=== PATIENT | female | born 1945 | race Caucasian/White ===

== ENCOUNTER → 2017-04-03 | Outpatient (CLI) | payer MEDICARE, BC ==
--- NOTE | 2017-04-04 09:44 | MM ---
Reason for exam: screening (asymptomatic). Last mammogram was performed 1 year and 6 months ago. History: Patient is postmenopausal. Took estrogen for 3 years beginning at age 48. Physical Findings: A clinical breast exam by your physician is recommended on an annual basis and results should be correlated with mammographic findings. MG Screening Mammo w CAD Bilateral CC and MLO view(s) were taken. Prior study comparison: September 26, 2015, bilateral MG 3d screening mammo w/cad. September 15, 2014, bilateral MG screening mammo w CAD. The breast tissue is heterogeneously dense. This may lower the sensitivity of mammography. There is no discrete abnormality. No significant changes when compared with prior studies. ASSESSMENT: Negative, BI-RAD 1 RECOMMENDATION: Routine screening mammogram of both breasts in 1 year.
== END | disposition home or self-care (01) ==
LOC: RADMAMWWP 12:22
PROVIDERS: ATTEND Obstetrics & Gynecology
DX: Z12.31 Encounter for screening mammogram for malignant neoplasm of breast (principal)

== ENCOUNTER → 2018-06-25 | Outpatient (CLI) | payer MEDICARE ==
--- NOTE | 2018-06-29 09:56 | MM ---
Reason for exam: screening (asymptomatic). Last mammogram was performed 1 year and 3 months ago. History: Patient is postmenopausal. Took estrogen for 3 years beginning at age 48. Physical Findings: A clinical breast exam by your physician is recommended on an annual basis and results should be correlated with mammographic findings. MG 3D Screening Mammo W/Cad Bilateral CC and MLO view(s) were taken. Prior study comparison: April 03, 2017, bilateral MG screening mammo w CAD. September 26, 2015, bilateral MG 3d screening mammo w/cad. The breast tissue is heterogeneously dense. This may lower the sensitivity of mammography. Stable benign calcifications. There is no discrete abnormality. No significant changes when compared with prior studies. ASSESSMENT: Benign, BI-RAD 2 RECOMMENDATION: Routine screening mammogram of both breasts in 1 year.
== END | disposition home or self-care (01) ==
LOC: RADMAMWWP 12:46
PROVIDERS: ATTEND Internal Medicine
DX: Z12.31 Encounter for screening mammogram for malignant neoplasm of breast (principal)
CPT/HCPCS: 77063; 77067

== ENCOUNTER → 2019-06-28 | Outpatient (CLI) | payer MEDICARE ==
--- NOTE | 2019-06-29 11:50 | MM ---
Reason for exam: screening (asymptomatic). Last mammogram was performed 1 year ago. History: Patient is postmenopausal. Took hormonal contraceptives for 10 years. Took estrogen for 3 years beginning at age 48. MG 3D Screening Mammo W/Cad Bilateral CC and MLO view(s) were taken. Prior study comparison: June 25, 2018, bilateral MG 3d screening mammo w/cad. April 03, 2017, bilateral MG screening mammo w CAD. The breast tissue is heterogeneously dense. This may lower the sensitivity of mammography. There are benign-appearing bilateral breast calcifications. No suspicious abnormality. No significant new findings when compared to prior studies. ASSESSMENT: Benign, BI-RAD 2 RECOMMENDATION: Routine screening mammogram of both breasts in 1 year.
== END | disposition home or self-care (01) ==
LOC: RADMAMWWP 09:45
PROVIDERS: ATTEND Internal Medicine
DX: Z12.31 Encounter for screening mammogram for malignant neoplasm of breast (principal)
CPT/HCPCS: 77063; 77067

== ENCOUNTER 2020-08-27 11:09 | Emergency (ER) | payer MEDICARE ==
[2020-08-27 11:21] VITALS: RESP 18
[2020-08-27] MEDS ORDERED: ONDANSETRON 4 MG/2 ML VIAL IVP STA (11:45)
[2020-08-27] MEDS ORDERED: SODIUM CHLORIDE 0.9% 500 ML 500 ML IV STA (11:45)
[2020-08-27 12:00] LABS: Basophils # (A) 0.1 k/uL (0-0.2); Basophils % (A) 1 %; Eosinophils # (A) 0.1 k/uL (0-0.7); Eosinophils % (A) 1 %; HCT 44.3 % (34.0-46.0); HGB 14.9 gm/dL (11.4-16.0); Lymphocytes # (A) 1.4 k/uL (1.0-4.8); Lymphocytes % (A) 18 %; MCH 30.7 pg (25.0-35.0); MCHC 33.6 g/dL (31.0-37.0); MCV 91.3 fL (80.0-100.0); Mean Platelet Volume 7.2; Monocytes # (A) 0.4 k/uL (0-1.0); Monocytes % (A) 5 %; Neutrophils # (A) 5.4 k/uL (1.3-7.7); Neutrophils % (A) 73 %; Platelet Count 240 k/uL (150-450); RBC 4.85 m/uL (3.80-5.40); RDW 12.7 % (11.5-15.5); WBC 7.4 k/uL (3.8-10.6)
[2020-08-27 12:11] LABS: ALT 19 U/L (4-34); AST 29 U/L (14-36); African American GFR (CKD) >90 (>60 ml/min/1.73 sqM); Albumin 4.2 g/dL (3.5-5.0); Alkaline Phosphatase 80 U/L (38-126); Amylase 46 U/L (30-110); Anion Gap 7 mmol/L; Blood Urea Nitrogen 12 mg/dL (7-17); Calcium 9.5 mg/dL (8.4-10.2); Carbon Dioxide 28 mmol/L (22-30); Chloride 102 mmol/L (98-107); Glucose 119 mg/dL (74-99); Non-African American GFR(CKD) 86 (>60 ml/min/1.73 sqM); Potassium 3.9 mmol/L (3.5-5.1); Sodium 137 mmol/L (137-145); Total Bilirubin 1.3 mg/dL (0.2-1.3); Total Protein 7.5 g/dL (6.3-8.2)
[2020-08-27 12:12] LABS: Appearance,Urine Clear (Clear); Bilirubin,Urine Negative (Negative); Blood,Urine Small (Negative); Color,Urine Yellow; Glucose,Urine (UA) Negative (Negative); Hyaline Casts,Urine 3 /lpf (0-2); Ketones,Urine 1+ (Negative); Leukocyte Esterase,Urine Moderate (Negative); Mucus,Urine Occasional /hpf; Nitrite,Urine Negative (Negative); PH, Urine 6.5 (5.0-8.0); Protein,Urine Negative (Negative); RBC,Urine 7 /hpf (0-5); Specific Gravity,Urine 1.015 (1.001-1.035); Squamous Epithelial Cell,Urine 1 /hpf (0-4); Urobilinogen,Urine <2.0 mg/dL (<2.0); WBC,Urine 5 /hpf (0-5)
--- NOTE | 2020-08-27 12:39 | ED ---
Abdominal Pain HPI - General Chief Complaint: Abdominal Pain Stated Complaint: abd pain Time Seen by Provider: 08/27/20 11:27 Source: patient Mode of arrival: ambulatory Limitations: no limitations - History of Present Illness Initial Comments: Patient is a 75-year-old female presenting to the emergency Department with complaints of lower abdominal pain that has been increasing over the past 3 days. Patient states she does have a history diverticulitis but that was about 7-8 years ago, and she is concerned that is what it is. She states she's also been under a lot of stress over the past few days secondary to her having dementia. Patient denies any recent fever, chills. She states she has had occasional nausea, no vomiting. She did have an episode of diarrhea 3 days ago but has been having regular movement since. She denies any dysuria. She denies any chest pain or shortness of breath. She does admit to history of cholecystectomy, hysterectomy, no other abdominal surgeries. She has no further complaints at this time. Upon arrival to the ER, her vital signs are stable. - Related Data Home Medications Medication Instructions Recorded Confirmed carvediloL [Carvedilol] 3.125 mg PO BID 09/02/15 09/03/15 lisinopriL 40 mg PO DAILY 09/02/15 09/03/15 Previous Rx's Medication Instructions Recorded Omeprazole [PriLOSEC] 40 mg PO AC-BRKFST #30 cap 09/04/15 Amoxicillin 500 mg PO Q12HR #10 cap 09/07/15 HYDROcodone/APAP 5-325MG [[place] 1 each PO Q4HR PRN #20 tab 09/07/15 5-325] Allergies Allergy/AdvReac Type Severity Reaction Status Date / Time No Known Allergies Allergy Verified 09/03/15 11:22 Review of Systems ROS Statement: Those systems with pertinent positive or pertinent negative responses have been documented in the HPI. ROS Other: All systems not noted in ROS Statement are negative. Past Medical History Past Medical History: GERD/Reflux, Hypertension Additional Past Medical History / Comment(s): diverticulitis, spinal stenosis History of Any Multi-Drug Resistant Organisms: None Reported Past Surgical History: Back Surgery, Cholecystectomy, Hysterectomy, Orthopedic Surgery, Tonsillectomy Additional Past Surgical History / Comment(s): 12-02-14 laminectomy with 2 rods and 3 pins. Has had colonoscopy performed within the last 2-3 years. cataracts Past Anesthesia/Blood Transfusion Reactions: No Reported Reaction Past Psychological History: No Psychological Hx Reported Smoking Status: Never smoker Past Alcohol Use History: None Reported Past Drug Use History: None Reported - Past Family History Father Family Medical History: Cancer Mother Family Medical History: Hypertension, Thyroid Disorder General Exam - General Exam Comments Initial Comments: GENERAL: Patient is well-developed and well-nourished. Patient is nontoxic and in no acute distress. HEAD: Atraumatic, normocephalic. EYES: Pupils equal round and reactive to light, extraocular movements intact, sclera anicteric, conjunctiva are normal. Eyelids were unremarkable. ENT: TMs normal, nares patent, oropharynx clear without exudates. Moist mucous membranes. NECK: Normal range of motion, supple without lymphadenopathy or JVD. LUNGS: Unlabored respirations. Breath sounds clear to auscultation bilaterally and equal. No wheezes rales or rhonchi. HEART: Regular rate and rhythm without murmurs, rubs or gallops. ABDOMEN: Tender in the lower abdomen, suprapubic region. Soft, normoactive bowel sounds. No guarding, no rebound. No masses appreciated. : Deferred MUSCULOSKELETAL: Normal extremities with adequate strength and normal range of motion, no pitting or edema. No clubbing or cyanosis. NEUROLOGICAL: Patient is alert and oriented x 3. Motor and sensory are also intact. Cranial nerves II through XII grossly intact. Symmetrical smile. Normal speech, normal gait. PSYCH: Normal mood, normal affect. SKIN: Warm, Dry, normal turgor, no rashes or lesions noted. Limitations: no limitations Course Vital Signs 08/27/20 08/27/20 11:17 13:05 Temperature 97.9 F 98 F Pulse Rate 83 72 Respiratory 18 18 Rate Blood Pressure 145/86 113/59 O2 Sat by Pulse 98 97 Oximetry Medical Decision Making - Medical Decision Making Patient is a 75-year-old female here for lower abdominal pain increasing 3 day s. Occasional nausea, one day of diarrhea, normal bowel movement since. Her vital signs are stable, afebrile. She is tender in the lower abdomen bilaterally. Labs show a normal white count, normal lactic acid, normal lipase. Urine shows no evidence of infection. CT of the abdomen shows no evidence of acute diverticulitis, no other abnormalities are seen. Patient received some fluids, Zofran. She is resting comfortably in the room. I discussed with patient her findings, this is most likely stress related, indigestion. I will send patient home with a starter pack and Zofran to use as needed for further nausea. Patient is in agreement with this plan of care. She will follow up with her PCP if needed. Return parameters were discussed with the patient she verbalized understanding. Case discussed with Dr. Roy. - Lab Data Result diagrams: 08/27/20 11:50 08/27/20 11:50 Lab Results 08/27/20 08/27/20 08/27/20 Range/Units 11:50 11:50 11:50 WBC 7.4 (3.8-10.6) k/uL RBC 4.85 (3.80-5.40) m/uL Hgb 14.9 (11.4-16.0) gm/dL Hct 44.3 (34.0-46.0) % MCV 91.3 (80.0-100.0) fL MCH 30.7 (25.0-35.0) pg MCHC 33.6 (31.0-37.0) g/dL RDW 12.7 (11.5-15.5) % Plt Count 240 (150-450) k/uL Neutrophils % 73 % Lymphocytes % 18 % Monocytes % 5 % Eosinophils % 1 % Basophils % 1 % Neutrophils # 5.4 (1.3-7.7) k/uL Lymphocytes # 1.4 (1.0-4.8) k/uL Monocytes # 0.4 (0-1.0) k/uL Eosinophils # 0.1 (0-0.7) k/uL Basophils # 0.1 (0-0.2) k/uL Sodium 137 (137-145) mmol/L Potassium 3.9 (3.5-5.1) mmol/L Chloride 102 (98-107) mmol/L Carbon Dioxide 28 (22-30) mmol/L Anion Gap 7 mmol/L BUN 12 (7-17) mg/dL Creatinine 0.65 (0.52-1.04) mg/dL Est GFR (CKD-EPI)AfAm >90 (>60 ml/min/1.73 sqM) Est GFR (CKD-EPI)NonAf 86 (>60 ml/min/1.73 sqM) Glucose 119 H (74-99) mg/dL Plasma Lactic Acid Sergio (0.7-2.0) mmol/L Calcium 9.5 (8.4-10.2) mg/dL Total Bilirubin 1.3 (0.2-1.3) mg/dL AST 29 (14-36) U/L ALT 19 (4-34) U/L Alkaline Phosphatase 80 (38-126) U/L Total Protein 7.5 (6.3-8.2) g/dL Albumin 4.2 (3.5-5.0) g/dL Amylase 46 (30-110) U/L Lipase 107 (23-300) U/L Urine Color Yellow Urine Appearance Clear (Clear) Urine pH 6.5 (5.0-8.0) Ur Specific [place] 1.015 (1.001-1.035) Urine Protein Negative (Negative) Urine Glucose (UA) Negative (Negative) Urine Ketones 1+ H (Negative) Urine Blood Small H (Negative) Urine Nitrite Negative (Negative) Urine Bilirubin Negative (Negative) Urine Urobilinogen <2.0 (<2.0) mg/dL Ur Leukocyte Esterase Moderate H (Negative) Urine RBC 7 H (0-5) /hpf Urine WBC 5 (0-5) /hpf Ur Squamous Epith Cells 1 (0-4) /hpf Hyaline Casts 3 H (0-2) /lpf Urine Mucus Occasional H (None) /hpf 10/25/20 Range/Units 11:50 WBC (3.8-10.6) k/uL RBC (3.80-5.40) m/uL Hgb (11.4-16.0) gm/dL Hct (34.0-46.0) % MCV (80.0-100.0) fL MCH (25.0-35.0) pg MCHC (31.0-37.0) g/dL RDW (11.5-15.5) % Plt Count (150-450) k/uL Neutrophils % % Lymphocytes % % Monocytes % % Eosinophils % % Basophils % % Neutrophils # (1.3-7.7) k/uL Lymphocytes # (1.0-4.8) k/uL Monocytes # (0-1.0) k/uL Eosinophils # (0-0.7) k/uL Basophils # (0-0.2) k/uL Sodium (137-145) mmol/L Potassium (3.5-5.1) mmol/L Chloride (98-107) mmol/L Carbon Dioxide (22-30) mmol/L Anion Gap mmol/L BUN (7-17) mg/dL Creatinine (0.52-1.04) mg/dL Est GFR (CKD-EPI)AfAm (>60 ml/min/1.73 sqM) Est GFR (CKD-EPI)NonAf (>60 ml/min/1.73 sqM) Glucose (74-99) mg/dL Plasma Lactic Acid Sergio 1.0 (0.7-2.0) mmol/L Calcium (8.4-10.2) mg/dL Total Bilirubin (0.2-1.3) mg/dL AST (14-36) U/L ALT (4-34) U/L Alkaline Phosphatase (38-126) U/L Total Protein (6.3-8.2) g/dL Albumin (3.5-5.0) g/dL Amylase (30-110) U/L Lipase (23-300) U/L Urine Color Urine Appearance (Clear) Urine pH (5.0-8.0) Ur Specific [place] (1.001-1.035) Urine Protein (Negative) Urine Glucose (UA) (Negative) Urine Ketones (Negative) Urine Blood (Negative) Urine Nitrite (Negative) Urine Bilirubin (Negative) Urine Urobilinogen (<2.0) mg/dL Ur Leukocyte Esterase (Negative) Urine RBC (0-5) /hpf Urine WBC (0-5) /hpf Ur Squamous Epith Cells (0-4) /hpf Hyaline Casts (0-2) /lpf Urine Mucus (None) /hpf Disposition Clinical Impression: Abdominal pain Disposition: HOME SELF-CARE Condition: Stable Instructions (If sedation given, give patient instructions): Abdominal Pain (ED) Additional Instructions: Please return to the Emergency Department if symptoms worsen or any other concerns. Lab work and computed tomography scan today was normal. May use Zofran for additional nausea. Recommend increase fluid intake. Follow-up with PCP. Is patient prescribed a controlled substance at d/c from ED?: No Referrals: Fely Forte MD [Primary Care Provider] - 1-2 days
--- NOTE | 2020-08-27 12:44 | CT ---
EXAMINATION TYPE: CT abdomen pelvis w con DATE OF EXAM: 08/27/2020 HISTORY: lower abd pain, diarrhea CT DLP: 1237.8mGycm Automated Exposure Control for Dose Reduction was Utilized. CONTRAST: CT scan of the abdomen and pelvis is performed without oral but with IV Contrast, patient injected wi th 100 mL of Isovue 300. COMPARISON: CT abdomen May 03, 2014 CT abdomen and pelvis April 18, 2013 FINDINGS: LUNG BASES: Calcification at level of mitral valve now present. LIVER/GB: Cholecystectomy clips now seen. Visualized liver low dense relative to spleen consistent wi th diffuse fatty infiltration. PANCREAS: No significant abnormality is seen. SPLEEN: No significant abnormality is seen. ADRENALS: No significant abnormality is seen. KIDNEYS: Symmetrical cortical medullary uptake and excretion without hydronephrosis seen bilaterally. BOWEL: Suboptimal evaluation ball without enteric contrast. No suspicious small or large bowel dilata tion is seen. Arat-ox-nxnzzudb diffuse gastric fold prominence could reflect products of underlying g astritis, correlate clinically. Prominent Diverticula throughout the colon without convincing CT evid ence for acute diverticulitis. UTERUS/ADNEXA: Uterus surgically absent or markedly atrophic. LYMPH NODES: No greater than 1cm abdominal or pelvic lymph nodes are appreciated. OSSEOUS STRUCTURES: Posterior interpedicular rods and screws transfix the L3-L5 levels. Grade 1 anter olisthesis L4 on L5. Moderate disc space narrowing L4-L5 level. Posterior laminectomy defects with sp inous process resection L4 level OTHER: No significant additional abnormality is seen. IMPRESSION: Prominent colonic diverticulosis without convincing CT evidence for acute diverticulitis. No bowel obstruction. No suspicious acute findings seen to account for patient's symptoms of lower a bdominal pain and diarrhea.
[2020-08-27] MEDS ORDERED: ONDANSETRON 4 MG ODT STARTER PACK 2 TAB BTL PO STA (12:57)
[2020-08-27 13:06] VITALS: BP 113/59; PULSE 72; TEMP 98
== END 2020-08-27 13:05 | disposition home or self-care (01) ==
LOC: EC 11:09
DX: R10.30 Lower abdominal pain, unspecified (principal); R10.814 Left lower quadrant abdominal tenderness; R10.813 Right lower quadrant abdominal tenderness; I10 Essential (primary) hypertension; Z79.899 Other long term (current) drug therapy; Z90.49 Acquired absence of other specified parts of digestive tract; Z90.710 Acquired absence of both cervix and uterus
CPT/HCPCS: 36415; 80053; 82150; 83605; 83690; 85025; 81001; 74177; 99284; 96374; J2405; S0119; Q9967

== ENCOUNTER → 2020-09-20 | Outpatient (CLI) | payer MEDICARE ==
--- NOTE | 2020-09-22 09:11 | MM ---
Reason for exam: screening (asymptomatic). Last mammogram was performed 1 year and 3 months ago. History: Patient is postmenopausal. Took hormonal contraceptives for 10 years. Took estrogen for 3 years beginning at age 48. Physical Findings: A clinical breast exam by your physician is recommended on an annual basis and results should be correlated with mammographic findings. MG 3D Screening Mammo W/Cad Bilateral CC and MLO view(s) were taken. Prior study comparison: June 28, 2019, bilateral MG 3d screening mammo w/cad. June 25, 2018, bilateral MG 3d screening mammo w/cad. There are scattered fibroglandular densities. No significant changes when compared with prior studies. ASSESSMENT: Benign, BI-RAD 2 RECOMMENDATION: Routine screening mammogram of both breasts in 1 year.
== END | disposition home or self-care (01) ==
LOC: RADMAMWWP 10:58
PROVIDERS: ATTEND Internal Medicine
DX: Z12.31 Encounter for screening mammogram for malignant neoplasm of breast (principal)
CPT/HCPCS: 77063; 77067

== ENCOUNTER → 2021-04-06 | Outpatient (CLI) | payer MEDICARE | END | disposition home or self-care (01) | LOC: LABPAT 08:37 | PROVIDERS: ATTEND Surgery | DX: Z01.812 Encounter for preprocedural laboratory examination (principal); Z20.822 Contact with and (suspected) exposure to COVID-19 | CPT/HCPCS: U0003; C9803; U0005 ==

== ENCOUNTER 2021-04-13 06:50 | Day surgery (SDC) | payer MEDICARE ==
[2021-04-11 10:01] VITALS: BMI 31.8
[~2021-04-13 06:50] MED LIST: LACTATED RINGERS 1,000 ML IV SCH
[2021-04-13 07:19] VITALS: TEMP 98.6
[2021-04-13] MEDS ORDERED: GLYCOPYRROLATE 0.2 MG/ML 2 ML VIAL ONE (07:28)
[2021-04-13] MEDS ORDERED: PROPOFOL 10 MG/ML 20 ML VIAL IV ONE (07:28)
[2021-04-13] MEDS ORDERED: LIDOCAINE 1% INJ 10MG/ML (20 ML MDV) ONE (07:28)
--- NOTE | 2021-04-13 07:32 | P.HPIHPCON ---
History of Present Illness H&P Date: 04/13/21 76-year-old female presents today for screening colonoscopy. Her last colonoscopy was in 2012. She states that time, 1 polyp was found. She denies any recent changes in bowel function. She denies any blood in her stool. Consent for Procedure: I have explained the operation/procedure to the patient, including the risks, benefits, side effects, alternative therapies (including not receiving the proposed treatment or service), the likelihood of the patient achieving his/her goals, and potential recuperation problems for the procedure/sedation/analgesia, as well as any blood products, if indicated. I also explained to the patient the risks, benefits and side effects of the alternatives, as well as the risks related to not receiving the proposed procedure, care, treatment, or services. - Review of Systems All systems: negative Past Medical History Past Medical History: GERD/Reflux, Hypertension Additional Past Medical History / Comment(s): diverticulitis, spinal stenosis History of Any Multi-Drug Resistant Organisms: None Reported Past Surgical History: Back Surgery, Cholecystectomy, Hysterectomy, Orthopedic Surgery, Tonsillectomy Additional Past Surgical History / Comment(s): 12-02-14 laminectomy with 2 rods and 3 pins. Has had colonoscopy performed within the last 2-3 years. cataracts- BILAT, KNEE SX Past Anesthesia/Blood Transfusion Reactions: No Reported Reaction Smoking Status: Never smoker - Past Family History Father Family Medical History: Cancer Mother Family Medical History: Hypertension, Thyroid Disorder Medications and Allergies Home Medications Medication Instructions Recorded Confirmed Type carvediloL [Carvedilol] 3.125 mg PO BID 09/02/15 04/11/21 History lisinopriL 40 mg PO DAILY 09/02/15 04/11/21 History Omeprazole 20 mg PO DAILY 04/11/21 04/11/21 History Vit D3 125 mcg PO DAILY 04/11/21 History hydroCHLOROthiazide [Hydrodiuril] 25 mg PO DAILY 04/11/21 04/11/21 History Allergies Allergy/AdvReac Type Severity Reaction Status Date / Time No Known Allergies Allergy Verified 04/13/21 07:11 Surgical - Exam Osteopathic Statement: *. No significant issues noted on an osteopathic structural exam other than those noted in the History and Physical/Consult. Vital Signs Temp Pulse Resp BP Pulse Ox 98.6 F 78 18 134/67 97 04/13/21 07:18 04/13/21 07:18 04/13/21 07:18 04/13/21 07:18 04/13/21 07:18 - General no distress - Respiratory normal respiratory effort - Abdomen Abdomen: soft, non tender Assessment and Plan Plan: 68-year-old female presents for elective screening colonoscopy. Risks, benefits and alternatives were provided to the patient. She did provide consent prior to attending the endoscopy suite. Further recommendations to be made after procedure.
[2021-04-13] MEDS ORDERED: ONDANSETRON 4 MG/2 ML VIAL ONE (07:55)
[2021-04-13] MEDS ORDERED: ONDANSETRON 4 MG/2 ML VIAL IVP ONE (07:55)
--- NOTE | 2021-04-13 07:55 | P.PCN ---
Date of Procedure: 04/13/21 Preoperative Diagnosis: Screening for colon cancer Postoperative Diagnosis: Diverticulosis Internal hemorrhoids Procedure(s) Performed: Colonoscopy Anesthesia: MAC Surgeon: Vic Branch Pathology: none sent Condition: stable Disposition: same day Indications for Procedure: 76-year-old female presents for elective screening colonoscopy. She has a history of polyps. Denies any blood in her stool. Operative Findings: Pandiverticulosis Internal hemorrhoids Description of Procedure: The patient was brought into the endoscopy suite and placed in left lateral decubitus position and adequate sedation was achieved using conscious sedation. A digital rectal exam was performed and internal hemorrhoids were palpated. An endoscope was then placed in the rectum and advanced to the cecum as identified by landmarks including the appendiceal orifice and ileocecal valve. The prep was good. The colonoscope was then slowly withdrawn, examining for any mucosal abnormalities. The cecum, ascending, transverse, descending and sigmoid colon were visualized adequately. There were no large neoplastic lesions noted throughout the colon. There were no obvious polyps noted throughout the colon. Diverticulosis was encountered throughout the colon and was noted to be moderate to severe. Retroflexion was performed in the rectum and internal hemorrhoids were visible. Excess air was removed, the colonoscope withdrawn and the procedure terminated. The patient was then transferred to recovery unit in stable condition. Repeat colonoscopy should be performed based on the patient's symptoms, due to the patient's age.
[2021-04-13 08:05] VITALS: RESP 20
[2021-04-13 08:20] VITALS: BP 133/68; PULSE 82
== END 2021-04-13 09:00 | disposition home or self-care (01) ==
LOC: ORWHC2ENDO 06:50
PROVIDERS: ATTEND Surgery
DX: Z12.11 Encounter for screening for malignant neoplasm of colon (principal); K64.8 Other hemorrhoids; Z86.010 Personal history of colon polyps; K57.90 Diverticulosis of intestine, part unspecified, without perforation or abscess without bleeding; I10 Essential (primary) hypertension; E78.5 Hyperlipidemia, unspecified; K21.9 Gastro-esophageal reflux disease without esophagitis; Z79.899 Other long term (current) drug therapy; M48.00 Spinal stenosis, site unspecified; Z98.890 Other specified postprocedural states
CPT/HCPCS: J2405; J2001; J2704; G0105; 45378

== ENCOUNTER 2022-04-22 08:52 | Emergency (ER) | payer MEDICARE ==
--- NOTE | 2022-04-22 10:00 | ED ---
General Adult HPI - General Chief complaint: Upper Respiratory Infection Stated complaint: URI Time Seen by Provider: 04/22/22 09:19 Source: patient, RN notes reviewed, old records reviewed Mode of arrival: ambulatory Limitations: no limitations - History of Present Illness Initial comments: 77-year-old female presenting for evaluation of cough, congestion for the past one week. Patient was started on antibiotics and steroids several days ago. She states her has similar symptoms. She had tested negative for coronavirus 3 days ago. No fevers. No central chest pain. She has been eating and drinking. - Related Data Home Medications Medication Instructions Recorded Confirmed carvediloL [Carvedilol] 3.125 mg PO BID 09/02/15 04/22/22 lisinopriL 40 mg PO DAILY 09/02/15 04/22/22 Omeprazole 20 mg PO DAILY 04/11/21 04/22/22 hydroCHLOROthiazide [Hydrodiuril] 25 mg PO DAILY 04/11/21 04/22/22 Amoxicillin 500 mg PO Q8H 04/22/22 04/22/22 Calcium Carbonate/Vitamin D3 1 cap PO DAILY 04/22/22 04/22/22 [Calcium 600 mg-D3 10 Mcg (400 Iu)] Cholecalciferol [Vitamin D3 (125 125 mcg PO DAILY 04/22/22 04/22/22 Mcg = 5000 Iu)] Multivitamins, Thera [Multivitamin 1 tab PO DAILY 04/22/22 04/22/22 (formulary)] Turmeric Root Extract [Turmeric] 1,000 mg PO DAILY 04/22/22 04/22/22 predniSONE See Taper PO DAILY 04/22/22 04/22/22 Previous Rx's Medication Instructions Recorded Azithromycin [Zithromax Z Pack] 1 tab PO DIRECTED #6 tab 04/22/22 Allergies Allergy/AdvReac Type Severity Reaction Status Date / Time No Known Allergies Allergy Verified 04/22/22 09:51 Review of Systems ROS Statement: Those systems with pertinent positive or pertinent negative responses have been documented in the HPI. ROS Other: All systems not noted in ROS Statement are negative. Past Medical History Past Medical History: GERD/Reflux, Hypertension Additional Past Medical History / Comment(s): diverticulitis, spinal stenosis History of Any Multi-Drug Resistant Organisms: None Reported Past Surgical History: Back Surgery, Cholecystectomy, Hysterectomy, Orthopedic Surgery, Tonsillectomy Additional Past Surgical History / Comment(s): 12-02-14 laminectomy with 2 rods and 3 pins. Has had colonoscopy performed within the last 2-3 years. cataracts Past Anesthesia/Blood Transfusion Reactions: No Reported Reaction Past Psychological History: No Psychological Hx Reported Smoking Status: Never smoker - Past Family History Father Family Medical History: Cancer Mother Family Medical History: Hypertension, Thyroid Disorder General Exam Limitations: no limitations General appearance: alert, in no apparent distress Head exam: Present: atraumatic, normocephalic Eye exam: Present: normal appearance, PERRL ENT exam: Present: mucous membranes moist Neck exam: Present: normal inspection. Absent: tenderness, meningismus Respiratory exam: Present: normal lung sounds bilaterally. Absent: respiratory distress, wheezes, rales Cardiovascular Exam: Present: regular rate, normal rhythm GI/Abdominal exam: Present: soft. Absent: distended, tenderness, guarding Extremities exam: Present: normal inspection, normal capillary refill. Absent: pedal edema Neurological exam: Present: alert, oriented X3, CN II-XII intact. Absent: motor sensory deficit Psychiatric exam: Present: normal affect, normal mood Skin exam: Present: warm, dry, intact. Absent: cyanosis, diaphoretic Course Vital Signs 04/22/22 04/22/22 09:12 10:30 Pulse Rate 79 73 Respiratory 20 18 Rate Blood Pressure 153/73 137/95 O2 Sat by Pulse 97 96 Oximetry Medical Decision Making - Medical Decision Making 77-year-old female with cough, congestion, no fever, patient well-appearing with good air entry, no hypoxia or respiratory distress. X-ray shows bronchitis without focal pneumonia or acute findings. She is negative for influenza, negative for coronavirus. She will be given intramuscular dose of Decadron and started on a azithromycin she should continue her prednisone as prescribed. She should follow-up with her primary care provider. - Lab Data Lab Results 04/22/22 04/22/22 Range/Units 09:51 09:51 Coronavirus (PCR) Not Detected (Not Detectd) Influenza Type A RNA Not Detected (Not Detectd) Influenza Type B (PCR) Not Detected (Not Detectd) Disposition Clinical Impression: Bronchitis Disposition: HOME SELF-CARE Condition: Good Instructions (If sedation given, give patient instructions): Acute Bronchitis (ED) Prescriptions: Azithromycin [Zithromax Z Pack] 1 tab PO DIRECTED #6 tab Is patient prescribed a controlled substance at d/c from ED?: No Referrals: Fely Forte MD [Primary Care Provider] - 1-2 days Time of Disposition: 10:46
--- NOTE | 2022-04-22 10:35 | XR ---
EXAMINATION TYPE: XR chest 2V DATE OF EXAM: 04/22/2022 COMPARISON: -Chest x-ray 09/02/2015 HISTORY: Cough TECHNIQUE: Frontal and lateral views of the chest are obtained. FINDINGS: Bronchial wall thickening is suspected. There is no focal air space opacity, pleural effusi on, or pneumothorax seen. The cardiac silhouette size is within normal limits. There is eventration of the hemidiaphragms. Arthropathy is present in the chromic clavicular joint. Postop change noted i n the lumbar spine. There are prominent lung volumes, flattening the hemidiaphragms consistent with p ossible underlying COPD, there is thoracic spondylosis. Surgical clips present in the right upper lynda drant. IMPRESSION: Correlate for bronchitis, reactive airways disease, follow-up as indicated.
[2022-04-22 10:42] VITALS: RESP 18
[2022-04-22] MEDS ORDERED: DEXAMETHASONE SOD PHOSPHATE 10 MG/ML 1 ML VIAL IM STA (10:45)
[2022-04-22 11:15] VITALS: BP 143/72; PULSE 75; TEMP 98.4
== END 2022-04-22 11:17 | disposition home or self-care (01) ==
LOC: EC 08:52
DX: J40 Bronchitis, not specified as acute or chronic (principal); I10 Essential (primary) hypertension; K21.9 Gastro-esophageal reflux disease without esophagitis; Z79.899 Other long term (current) drug therapy
CPT/HCPCS: 87502; 87635; 71046; 99283; 96372; J1100

== ENCOUNTER 2022-04-27 09:51 | Emergency (ER) | payer MEDICARE ==
[2022-04-27 10:07] VITALS: BP 168/79; PULSE 80; RESP 20; TEMP 98.7
--- NOTE | 2022-04-27 11:38 | ED ---
URI HPI - General Chief Complaint: Upper Respiratory Infection Stated Complaint: Med reaction/SOB/Weakness Time Seen by Provider: 04/27/22 10:17 Source: patient, RN notes reviewed Mode of arrival: ambulatory Limitations: no limitations - History of Present Illness Initial Comments: 77-year-old female with a past medical history of GERD, hypertension presents to the emergency room for medication adjustment. Patient reports that she has not been feeling well for about 8 days now. States she developed nasal congestion and a cough. States that she initially saw urgent care at that time her about 8 days ago and was prescribed 2 weeks of amoxicillin and a steroid which she took. She then came to the emergency room about 5 days ago and was prescribed azithromycin which she has finished. She was also given IM Decadron at that time. Patient saw her primary care provider about 3 days ago and was started on 80 mg of prednisone daily, nebulized albuterol, and Mucinex. Patient states she feels she is overmedicated. States that she is taking 40 mg of penicillin in the morning and 40 at night before she goes to bed. States she can't sleep all night. For the past 2 nights she has just been up cleaning and jittery. She states her symptoms are still the same with her cough and congestion. Minimal shortness of breath but has not worsened in the past week. No chest pain. No history of COPD or wheezing. She wants to know if she can stop taking some of these medications. She is currently taking amoxicillin, prednisone, Mucinex, and nebulized albuterol. Patient has no other complaints at this time including chest pain, abdominal pain, nausea or vomiting, headache, or visual changes. - Related Data Home Medications Medication Instructions Recorded Confirmed carvediloL [Carvedilol] 3.125 mg PO BID 09/02/15 04/22/22 lisinopriL 40 mg PO DAILY 09/02/15 04/22/22 Omeprazole 20 mg PO DAILY 04/11/21 04/22/22 hydroCHLOROthiazide [Hydrodiuril] 25 mg PO DAILY 04/11/21 04/22/22 Amoxicillin 500 mg PO Q8H 04/22/22 04/22/22 Calcium Carbonate/Vitamin D3 1 cap PO DAILY 04/22/22 04/22/22 [Calcium 600 mg-D3 10 Mcg (400 Iu)] Cholecalciferol [Vitamin D3 (125 125 mcg PO DAILY 04/22/22 04/22/22 Mcg = 5000 Iu)] Multivitamins, Thera [Multivitamin 1 tab PO DAILY 04/22/22 04/22/22 (formulary)] Turmeric Root Extract [Turmeric] 1,000 mg PO DAILY 04/22/22 04/22/22 predniSONE See Taper PO DAILY 04/22/22 04/22/22 Previous Rx's Medication Instructions Recorded Azithromycin [Zithromax Z Pack] 1 tab PO DIRECTED #6 tab 04/22/22 Allergies Allergy/AdvReac Type Severity Reaction Status Date / Time No Known Allergies Allergy Verified 04/27/22 10:07 Review of Systems ROS Statement: Those systems with pertinent positive or pertinent negative responses have been documented in the HPI. ROS Other: All systems not noted in ROS Statement are negative. Past Medical History Past Medical History: GERD/Reflux, Hypertension Additional Past Medical History / Comment(s): diverticulitis, spinal stenosis History of Any Multi-Drug Resistant Organisms: None Reported Past Surgical History: Back Surgery, Cholecystectomy, Hysterectomy, Orthopedic Surgery, Tonsillectomy Additional Past Surgical History / Comment(s): 12-02-14 laminectomy with 2 rods and 3 pins. Has had colonoscopy performed within the last 2-3 years. cataracts Past Anesthesia/Blood Transfusion Reactions: No Reported Reaction Past Psychological History: No Psychological Hx Reported Smoking Status: Never smoker - Past Family History Father Family Medical History: Cancer Mother Family Medical History: Hypertension, Thyroid Disorder General Exam Limitations: no limitations General appearance: alert, in no apparent distress Head exam: Present: atraumatic Eye exam: Present: normal appearance, PERRL, EOMI. Absent: scleral icterus, conjunctival injection ENT exam: Present: normal exam, mucous membranes moist Neck exam: Present: normal inspection, full ROM. Absent: tenderness Respiratory exam: Present: normal lung sounds bilaterally. Absent: respiratory distress, wheezes, rales, rhonchi, stridor, accessory muscle use Cardiovascular Exam: Present: regular rate, normal rhythm, normal heart sounds GI/Abdominal exam: Present: soft, normal bowel sounds. Absent: distended, tenderness Course Vital Signs 04/27/22 10:04 Temperature 98.7 F Pulse Rate 80 Respiratory 20 Rate Blood Pressure 168/79 O2 Sat by Pulse 97 Oximetry Medical Decision Making - Medical Decision Making Vitals are stable. Pulse ox is 97%. Heart rate is 80. Patient is well- appearing. I did discuss patient's medication regimen and reviewed x-ray from previous visit. There is no evidence of pneumonia. I offered to get some labs and give fluids and repeat a chest x-ray but patient prefers to 2 just adjust medication based off of previous visit. Chest x-ray at that time did not show any pneumonia. I discussed the patient can discontinue the amoxicillin, she has already finished the azithromycin. As she does not have any wheezing she can discontinue the prednisone or just take 20 mg in the morning as well as the albuterol as these could both be making her jittery. If she starts to have any wheezing or worsening soreness of breath she can resume these. If she starts to have worsening soreness of breath or chest pain she will return to the emergency room. She will otherwise follow-up with her doctor. Disposition Clinical Impression: Cough, Bronchitis Disposition: HOME SELF-CARE Condition: Good Instructions (If sedation given, give patient instructions): Upper Respiratory Infection (ED) Additional Instructions: Please continue to take Mucinex. Discontinue Prednise and albuteral breathing treatment. If you start to develop wheezing or worsening shortness of breath then restart the prednisone and the albuterol breathing treatment. You can discontinue the amoxicillin as well. Return to the emergency room for any worsening symptoms. Follow up with your doctor. Is patient prescribed a controlled substance at d/c from ED?: No Referrals: Fely Forte MD [Primary Care Provider] - 1-2 days Time of Disposition: 11:43
== END 2022-04-27 12:17 | disposition home or self-care (01) ==
LOC: EC 09:51
DX: J40 Bronchitis, not specified as acute or chronic (principal); I10 Essential (primary) hypertension; K21.9 Gastro-esophageal reflux disease without esophagitis; Z79.899 Other long term (current) drug therapy
CPT/HCPCS: 99284

== ENCOUNTER → 2022-06-06 | Outpatient (CLI) | payer MEDICARE ==
--- NOTE | 2022-06-07 08:20 | MM ---
Reason for Exam: Screening (asymptomatic). Last mammogram was performed 1 year(s) and 9 month(s) ago. Patient History: Menarche at age 11. First Full-Term at age 17. Hysterectomy at age 46. Postmenopausal. Estrogen for 3 years from age 48 until age 51. Patient used Hormonal Contraceptives for 10 years. Risk Values: Evelin 5 year model risk: 1.2%. NCI Lifetime model risk: 2.0%. Prior Study Comparison: 06/25/2018 Bilateral Screening Mammogram, [facility]. 06/28/2019 Bilateral Screening Mammogram, [facility]. 09/20/2020 Bilateral Screening Mammogram, [facility]. Tissue Density: There are scattered fibroglandular densities. Findings: Analyzed By CAD. There is no suspicious group of microcalcifications or new suspicious mass in either breast. Overall Assessment: Negative, BI-RAD 1 Management: Screening Mammogram of both breasts in 1 year. A clinical breast exam by your physician is recommended on an annual basis and results should be correlated with mammographic findings. Electronically signed and approved by: Chris Glasgow DO
== END | disposition home or self-care (01) ==
LOC: RADMAMWWP 13:33
PROVIDERS: ATTEND Internal Medicine
DX: Z12.31 Encounter for screening mammogram for malignant neoplasm of breast (principal)
CPT/HCPCS: 77063; 77067